=== PATIENT | female | born 1960 | race Caucasian/White ===

== ENCOUNTER 2017-10-16 09:39 | Emergency (ER) | payer MEDICARE, BC | END 2017-10-16 10:16 | disposition home or self-care (01) | LOC: E/R 09:39 | DX: J11.1 Influenza due to unidentified influenza virus with other respiratory manifestations (principal); I10 Essential (primary) hypertension; E11.9 Type 2 diabetes mellitus without complications; Z79.4 Long term (current) use of insulin | CPT/HCPCS: 99284 ==